=== PATIENT | male | born 1985 | race Two or more races ===

== ENCOUNTER 2020-07-01 04:08 | Inpatient (IN) | payer OTHER ==
[2020-06-30 07:17] VITALS: BMI 28.6
[~2020-07-01 04:08] MED LIST: VANCOMYCIN 1,000 MG VIAL (RESTRICTED TO ID ONLY) IVPB ONE
[2020-07-01] MEDS ORDERED: ceFAZolin SODIUM 1 GM VIAL IVPB ONE (08:37)
[2020-07-01] MEDS ORDERED: VANCOMYCIN 1,000 MG VIAL (RESTRICTED TO ID ONLY) IVPB ONE (08:47)
[2020-07-01] MEDS ORDERED: THROMBIN (BOVINE) 5,000 UNIT VIAL TP ONE (08:56)
[2020-07-01] MEDS ORDERED: GELATIN, ABSORBABLE 100 EACH SPONGE TP ONE (08:56)
[2020-07-01] MEDS ORDERED: TRANEXAMIC ACID 1000 MG/10 ML VIAL IVPB ONE ×2 (08:58→10:00)
[2020-07-01] MEDS ORDERED: BACITRACIN 50,000 UNITS VIAL TP ONE (09:00)
[2020-07-01] MEDS ORDERED: GENTAMICIN SO4 80 MG/2 ML VIAL IVPB ONE (09:00)
[2020-07-01] MEDS ORDERED: HYDROGEN PEROXIDE 473 ML PO ONE (09:00)
[2020-07-01] MEDS ORDERED: ONDANSETRON 4 MG/2 ML VIAL IVPUSH PRN ×2 (10:51→11:06)
[2020-07-01] MEDS ORDERED: LACTATED RINGERS SOLUTION 1,000 ML IV SCH (11:00)
[2020-07-01] MEDS ORDERED: LIDOCAINE HCL/PF 1% SDV 5ML VIAL ONE (11:06)
[2020-07-01] MEDS ORDERED: THROMBIN (BOVINE) 20,000 UNIT VIAL TP ONE (11:06)
[2020-07-01] MEDS ORDERED: GENTAMICIN SO4 80 MG/2 ML VIAL ONE (11:06)
[2020-07-01] MEDS ORDERED: ACETAMINOPHEN 1000 MG/100 ML VIAL (NON FORMULARY) IVPB ONE (11:13)
[2020-07-01] MEDS ORDERED: ACETAMINOPHEN 1000 MG/100 ML VIAL (NON FORMULARY) IVPB PRN (14:33)
[2020-07-01] MEDS ORDERED: oxyCODONE HCL 5 MG TABLET PO PRN (14:36)
[2020-07-01] MEDS: LACTATED RINGERS SOLUTION 1,000 ML IV SCH ×2 (15:00→20:04)
[2020-07-01] MEDS: CEFAZOLIN 2 GM/D5W 2 GM/50 ML ML IVPB SCH ×2 (15:00→20:19)
[2020-07-01] MEDS: oxyCODONE HCL 5 MG TABLET PO PRN (20:38)
[2020-07-01] MEDS ORDERED: GABAPENTIN 400 MG CAPSULE PO SCH (22:00)
[2020-07-02] MEDS: oxyCODONE HCL 5 MG TABLET PO PRN ×4 (01:24→16:46)
[2020-07-02] MEDS: CEFAZOLIN 2 GM/D5W 2 GM/50 ML ML IVPB SCH ×2 (02:00→11:24)
[2020-07-02] MEDS: LACTATED RINGERS SOLUTION 1,000 ML IV SCH ×2 (06:28→11:23)
[2020-07-02 09:24] LABS: HEMATOCRIT 39.6 % (35.4-49); HEMOGLOBIN 13.5 GM/dL (11.7-16.9); MCHC 34.1 g/dl (32.0-35.9); MEAN CELL VOLUME 90.8 fl (80-96); MEAN PLT VOLUME 7.8 fl (7.5-11.1); PLATELET COUNT 232 K/MM3 (134-434); RBC 4.36 M/mm3 (4.00-5.60); RDW 13.5 % (11.9-15.9); WHITE BLOOD COUNT 11.5 K/mm3 (4.0-10.0)
[2020-07-02 10:14] LABS: ALBUMIN 3.2 g/dl (3.4-5.0); BLOOD UREA NITROGEN 11.9 mg/dL (7-18); CALCIUM 9.2 mg/dL (8.5-10.1)
[2020-07-02 10:18] LABS: CREATININE 0.9 mg/dL (0.55-1.3)
[2020-07-02 10:19] LABS: BILIRUBIN,TOTAL 0.8 mg/dL (0.2-1)
[2020-07-02 15:46] VITALS: BP 141/78; PULSE 91; TEMP 97.5
== END 2020-07-02 18:53 | disposition home health service (06) | DRG 321 ==
LOC: J2C 04:08 → J8W 14:05
PROVIDERS: ADMIT Family Medicine; ATTEND Family Medicine
PROC: 0RG1070 Fusion of Cervical Vertebral Joint with Autologous Tissue Substitute, Anterior Approach, Anterior Column, Open Approach (ICD-10-PCS; 2020-07-01)
PROC: 00NW0ZZ Release Cervical Spinal Cord, Open Approach (ICD-10-PCS; 2020-07-01)
PROC: 0RB30ZZ Excision of Cervical Vertebral Disc, Open Approach (ICD-10-PCS; 2020-07-01)
PROC: 0PB30ZZ Excision of Cervical Vertebra, Open Approach (ICD-10-PCS; 2020-07-01)
PROC: B01BZZZ Fluoroscopy of Spinal Cord (ICD-10-PCS; 2020-07-01)
PROC: 4A1004G Monitoring of Central Nervous Electrical Activity, Intraoperative, Open Approach (ICD-10-PCS; 2020-07-01)
PROC: 0PS304Z Reposition Cervical Vertebra with Internal Fixation Device, Open Approach (ICD-10-PCS; 2020-07-01)
PROC: 0RG10A0 Fusion of Cervical Vertebral Joint with Interbody Fusion Device, Anterior Approach, Anterior Column, Open Approach (ICD-10-PCS; principal; 2020-07-01 08:00)
DX: M47.892 Other spondylosis, cervical region (principal); M40.202 Unspecified kyphosis, cervical region
CPT/HCPCS: 36415; 72125-TC; 76000-TC-FY; 80053; 85027; 86850; 86900; 86901; 94010; 94760; 97116-GP; 97161-GP; J0131

== ENCOUNTER 2021-01-12 14:57 | Emergency (ER) | payer OTHER ==
[2021-01-12 15:30] VITALS: BP 119/56; PULSE 81; TEMP 98.1; BMI 29.5
[2021-01-12] MEDS ORDERED: KETOROLAC TROMETHAMINE 60 MG/2 ML VIAL IM ONE (16:46)
[2021-01-12] MEDS ORDERED: KETOROLAC TROMETHAMINE 60 MG/2 ML VIAL ONE (16:48)
== END 2021-01-12 16:49 | disposition home or self-care (01) ==
LOC: JER 14:57
PROC: 3E0233Z Introduction of Anti-inflammatory into Muscle, Percutaneous Approach (ICD-10-PCS; principal; 2021-01-12)
DX: J45.901 Unspecified asthma with (acute) exacerbation (principal); M54.50 Low back pain, unspecified
CPT/HCPCS: 99283-25

== ENCOUNTER 2021-04-12 04:15 | Inpatient (IN) | payer OTHER ==
[2021-04-07 10:04] VITALS: BMI 28.8
[2021-04-12] MEDS ORDERED: LIDOCAINE 1%/EPI 1:100000 (20 ML MULTI DOSE VIAL) IJ ONE ×2 (07:44→08:50)
[2021-04-12] MEDS ORDERED: VANCOMYCIN 1 GM in D5W (PRE-DOCKED) 1,000 MG/250 ML IVPB ONE ×3 (07:45→12:15)
[2021-04-12] MEDS ORDERED: ceFAZolin 2 GRAM PREMIX BAG IVPB ONE ×3 (07:45→17:35)
[2021-04-12] MEDS ORDERED: THROMBIN (BOVINE) 5,000 UNIT VIAL TP ONE ×2 (07:46→09:10)
[2021-04-12] MEDS ORDERED: TRANEXAMIC ACID 1000 MG/10 ML VIAL IVPB ONE ×2 (07:46→08:15)
[2021-04-12] MEDS ORDERED: HYDROGEN PEROXIDE 473 ML PO ONE ×2 (07:47→09:33)
[2021-04-12] MEDS ORDERED: GENTAMICIN SO4 80 MG/2 ML VIAL IVPB ONE ×2 (07:47→09:24)
[2021-04-12] MEDS ORDERED: BUPIVACAINE HCL/PF 0.5% (5MG/ML) 10 ML VIAL IJ ONE ×2 (07:48→12:20)
[2021-04-12] MEDS ORDERED: BUPIVACAINE LIPOSOME/PF (EXPAREL) 266 MG/20 ML VIAL NR ONE ×2 (07:48→12:20)
[2021-04-12] MEDS ORDERED: ONDANSETRON 4 MG/2 ML VIAL IVPUSH PRN (13:08)
[2021-04-12] MEDS ORDERED: diazePAM CARPU-JECT 10 MG/2 ML DISP.SYRIN IVPUSH PRN (13:08)
[2021-04-12] MEDS ORDERED: oxyCODONE HCL 5 MG TABLET PO PRN (13:08)
[2021-04-12] MEDS ORDERED: LABETALOL HCL 5 MG/1 ML (100MG/20 ML VIAL) IVPUSH ONE (13:18)
[2021-04-12] MEDS ORDERED: TRIAMCINOLONE ACET 40MG/1ML VIAL ONE (13:25)
[2021-04-12] MEDS ORDERED: ceFAZolin SODIUM 1 GM VIAL ONE (17:18)
[2021-04-12] MEDS: LACTATED RINGERS SOLUTION 1,000 ML IV SCH ×2 (17:35→22:51)
[2021-04-12] MEDS: CEFAZOLIN 2 GM in SODIUM CHLORIDE 100 ML IVPB SCH (18:07)
[2021-04-12] MEDS ORDERED: FLU VACC QS2021-22(6MOS UP)/PF 60 MCG/0.5 ML SYRINGE IM ONE (20:00)
[2021-04-13] MEDS: CEFAZOLIN 2 GM in SODIUM CHLORIDE 100 ML IVPB SCH ×2 (00:30→06:22)
[2021-04-13] MEDS: HYDROmorphone HCl 2 MG/ML VIAL SQ PRN ×3 (01:29→18:06)
[2021-04-13] MEDS: ACETAMINOPHEN 1000 MG/100 ML BAG IVPB PRN ×2 (06:27→14:37)
[2021-04-13 08:14] LABS: HEMOGLOBIN 12.3 GM/dL (11.7-16.9); MCH 29.5 pg (25.7-33.7); MCHC 32.3 g/dl (32.0-35.9); MEAN CELL VOLUME 91.3 fl (80-96); PLATELET COUNT 254 10^3/uL (134-434); RBC 4.16 M/mm3 (4.00-5.60); WHITE BLOOD COUNT 11.5 K/mm3 (4.0-10.0)
[2021-04-13 08:53] LABS: CALCIUM 8.3 mg/dL (8.5-10.1)
[2021-04-13 08:54] LABS: BLOOD UREA NITROGEN 15.5 mg/dL (7-18)
[2021-04-13 08:57] LABS: CREATININE 0.9 mg/dL (0.55-1.3)
[2021-04-13] MEDS: oxyCODONE HCL 5 MG TABLET PO PRN (22:25)
[2021-04-14] MEDS: ACETAMINOPHEN 1000 MG/100 ML BAG IVPB PRN (00:44)
[2021-04-14] MEDS: HYDROmorphone HCl 2 MG/ML VIAL SQ PRN ×3 (05:35→18:50)
[2021-04-14 07:54] LABS: BASO % 0.3 % (0-2.0); EOS % 0.1 % (0-4.5); HEMATOCRIT 37.9 % (35.4-49); HEMOGLOBIN 12.3 GM/dL (11.7-16.9); LYMPH % 12.3 % (8-40); MCH 29.4 pg (25.7-33.7); MCHC 32.5 g/dl (32.0-35.9); MEAN CELL VOLUME 90.3 fl (80-96); MEAN PLT VOLUME 7.6 fl (7.5-11.1); MONO % 10.6 % (3.8-10.2); NEUT % 76.7 % (42.8-82.8); PLATELET COUNT 230 10^3/uL (134-434); RBC 4.19 M/mm3 (4.00-5.60); WHITE BLOOD COUNT 11.4 K/mm3 (4.0-10.0)
[2021-04-14 08:14] LABS: CALCIUM 8.6 mg/dL (8.5-10.1)
[2021-04-14 08:15] LABS: BLOOD UREA NITROGEN 9.9 mg/dL (7-18)
[2021-04-14 08:18] LABS: CREATININE 0.8 mg/dL (0.55-1.3); PHOSPHOROUS 2.2 mg/dL (2.5-4.9)
[2021-04-14 08:19] LABS: BILIRUBIN,TOTAL 1.4 mg/dL (0.2-1); TOT PROT 5.7 g/dl (6.4-8.2)
[2021-04-14] MEDS: LACTATED RINGERS SOLUTION 1,000 ML IV SCH (09:05)
[2021-04-14] MEDS ORDERED: HYDROmorphone HCl 2 MG/ML VIAL IVPB ONE (09:15)
[2021-04-14] MEDS: POLYETHYLENE GLYCOL (HEALTHYLAX) 3350 17 GM PACKET PO SCH (12:16)
[2021-04-14] MEDS: DOCUSATE SODIUM 100 MG CAPSULE (FP) PO SCH ×2 (12:16→21:41)
[2021-04-14] MEDS: oxyCODONE HCL 5 MG TABLET PO PRN (21:41)
[2021-04-14] MEDS: ACETAMINOPHEN 325 MG TABLET (FP) PO PRN (22:37)
[2021-04-15] MEDS: HYDROmorphone HCl 2 MG/ML VIAL SQ PRN (01:39)
[2021-04-15] MEDS ORDERED: ONDANSETRON 4 MG/2 ML VIAL IVPUSH PRN (07:24)
[2021-04-15] MEDS ORDERED: diazePAM CARPU-JECT 10 MG/2 ML DISP.SYRIN IVPUSH PRN (07:24)
[2021-04-15] MEDS ORDERED: HYDROmorphone HCl 2 MG/ML VIAL SQ PRN (07:24)
[2021-04-15] MEDS ORDERED: oxyCODONE HCL 5 MG TABLET PO PRN (07:24)
[2021-04-15] MEDS: DOCUSATE SODIUM 100 MG CAPSULE (FP) PO SCH ×2 (09:38→21:37)
[2021-04-15] MEDS: oxyCODONE HCL 5 MG TABLET PO PRN ×3 (09:38→19:02)
[2021-04-15] MEDS: POLYETHYLENE GLYCOL (HEALTHYLAX) 3350 17 GM PACKET PO SCH (09:39)
[2021-04-15 13:11] LABS: HEMATOCRIT 41.6 % (35.4-49); HEMOGLOBIN 13.7 GM/dL (11.7-16.9); MCH 29.8 pg (25.7-33.7); MEAN CELL VOLUME 90.3 fl (80-96); MEAN PLT VOLUME 8.1 fl (7.5-11.1); PLATELET COUNT 264 10^3/uL (134-434); RBC 4.61 M/mm3 (4.00-5.60); RDW 12.9 % (11.9-15.9); WHITE BLOOD COUNT 14.2 K/mm3 (4.0-10.0)
[2021-04-15 13:40] LABS: CALCIUM 9.1 mg/dL (8.5-10.1)
[2021-04-15 13:41] LABS: BLOOD UREA NITROGEN 10.4 mg/dL (7-18)
[2021-04-15 13:44] LABS: CREATININE 0.9 mg/dL (0.55-1.3)
[2021-04-15] MEDS ORDERED: DEXTROSE 5%-WATER - 50 ML IVPB ONE (13:45)
[2021-04-15] MEDS ORDERED: cefTRIAXone SODIUM 1 GM VIAL ONE (13:45)
[2021-04-15] MEDS: ACETAMINOPHEN 325 MG TABLET (FP) PO PRN ×2 (14:14→21:34)
[2021-04-15] MEDS: CEFTRIAXONE 1 GM in DEXTROSE 5%-WATER - 50 ML IVPB SCH (14:15)
[2021-04-15] MEDS ORDERED: VANCOMYCIN 1 GM in D5W (PRE-DOCKED) 1,000 MG/250 ML IVPB ONE (17:21)
[2021-04-16] MEDS: oxyCODONE HCL 5 MG TABLET PO PRN ×4 (06:58→23:55)
[2021-04-16] MEDS: ACETAMINOPHEN 325 MG TABLET (FP) PO PRN ×4 (06:59→23:56)
[2021-04-16] MEDS ORDERED: DEXTROSE 5%-WATER - 50 ML IVPB ONE (09:19)
[2021-04-16] MEDS ORDERED: cefTRIAXone SODIUM 1 GM VIAL ONE (09:19)
[2021-04-16] MEDS: CEFTRIAXONE 1 GM in DEXTROSE 5%-WATER - 50 ML IVPB SCH (11:03)
[2021-04-16] MEDS: POLYETHYLENE GLYCOL (HEALTHYLAX) 3350 17 GM PACKET PO SCH (11:03)
[2021-04-16] MEDS: DOCUSATE SODIUM 100 MG CAPSULE (FP) PO SCH ×2 (11:04→20:59)
[2021-04-16] MEDS: VANCOMYCIN/WATER BAGS 1,250 MG/250 ML BAG IVPB SCH (14:58)
[2021-04-16] MEDS: LACTATED RINGERS SOLUTION 1,000 ML IV SCH (20:24)
[2021-04-17] MEDS ORDERED: MELATONIN 5 MG TABLETS PO PRN (00:04)
[2021-04-17] MEDS: VANCOMYCIN/WATER BAGS 1,250 MG/250 ML BAG IVPB SCH ×2 (01:40→14:06)
[2021-04-17 02:24] LABS: URINE APPEARANCE CLEAR; URINE BILIRUBIN NEGATIVE (NEGATIVE); URINE COLOR YELLOW; URINE GLUCOSE (UA) NEGATIVE (NEGATIVE); URINE KETONE TRACE (NEGATIVE); URINE LEUK ESTERASE NEGATIVE (NEGATIVE); URINE NITRITE NEGATIVE (NEGATIVE); URINE PROTEIN TRACE (NEGATIVE)
[2021-04-17] MEDS: oxyCODONE HCL 5 MG TABLET PO PRN ×3 (08:58→22:22)
[2021-04-17] MEDS: ACETAMINOPHEN 325 MG TABLET (FP) PO PRN ×3 (08:59→22:24)
[2021-04-17] MEDS ORDERED: cefTRIAXone SODIUM 1 GM VIAL ONE (10:39)
[2021-04-17] MEDS ORDERED: DEXTROSE 5%-WATER - 50 ML IVPB ONE (10:40)
[2021-04-17] MEDS: POLYETHYLENE GLYCOL (HEALTHYLAX) 3350 17 GM PACKET PO SCH ×3 (11:00→22:22)
[2021-04-17] MEDS: CEFTRIAXONE 1 GM in DEXTROSE 5%-WATER - 50 ML IVPB SCH (11:00)
[2021-04-17] MEDS: DOCUSATE SODIUM 100 MG CAPSULE (FP) PO SCH ×2 (11:01→22:22)
[2021-04-17 12:01] LABS: BASO % 0.3 % (0-2.0); EOS % 0.1 % (0-4.5); HEMATOCRIT 39.6 % (35.4-49); HEMOGLOBIN 13.2 GM/dL (11.7-16.9); LYMPH % 9.6 % (8-40); MCHC 33.2 g/dl (32.0-35.9); MEAN CELL VOLUME 90.2 fl (80-96); MONO % 7.8 % (3.8-10.2); NEUT % 82.2 % (42.8-82.8); PLATELET COUNT 323 10^3/uL (134-434); RBC 4.39 M/mm3 (4.00-5.60); RDW 13.4 % (11.9-15.9); WHITE BLOOD COUNT 8.8 K/mm3 (4.0-10.0)
[2021-04-17 12:20] LABS: CALCIUM 8.7 mg/dL (8.5-10.1)
[2021-04-17 12:21] LABS: ALBUMIN 2.9 g/dl (3.4-5.0)
[2021-04-17 12:24] LABS: CREATININE 0.8 mg/dL (0.55-1.3)
[2021-04-17 12:25] LABS: TOT PROT 6.6 g/dl (6.4-8.2)
[2021-04-17] MEDS: ENOXAPARIN NA (PORCINE) 40 MG/0.4 ML DISP.SYRIN SQ SCH (16:52)
[2021-04-18] MEDS: VANCOMYCIN/WATER BAGS 1,250 MG/250 ML BAG IVPB SCH ×2 (01:30→14:55)
[2021-04-18] MEDS: ACETAMINOPHEN 325 MG TABLET (FP) PO PRN ×3 (06:08→22:25)
[2021-04-18] MEDS: POLYETHYLENE GLYCOL (HEALTHYLAX) 3350 17 GM PACKET PO SCH ×3 (06:08→21:01)
[2021-04-18] MEDS: oxyCODONE HCL 5 MG TABLET PO PRN ×3 (06:09→21:00)
[2021-04-18] MEDS ORDERED: cefTRIAXone SODIUM 1 GM VIAL ONE (09:53)
[2021-04-18] MEDS ORDERED: DEXTROSE 5%-WATER - 50 ML IVPB ONE ×3 (09:54→21:58)
[2021-04-18] MEDS: CEFTRIAXONE 1 GM in DEXTROSE 5%-WATER - 50 ML IVPB SCH (10:01)
[2021-04-18] MEDS: DOCUSATE SODIUM 100 MG CAPSULE (FP) PO SCH ×2 (10:01→21:00)
[2021-04-18] MEDS: ENOXAPARIN NA (PORCINE) 40 MG/0.4 ML DISP.SYRIN SQ SCH (10:01)
[2021-04-18 12:29] LABS: BASO % 0.4 % (0-2.0); EOS % 0.4 % (0-4.5); HEMATOCRIT 37.7 % (35.4-49); HEMOGLOBIN 12.7 GM/dL (11.7-16.9); LYMPH % 18.8 % (8-40); MCH 30.1 pg (25.7-33.7); MCHC 33.6 g/dl (32.0-35.9); MEAN CELL VOLUME 89.5 fl (80-96); MEAN PLT VOLUME 7.6 fl (7.5-11.1); MONO % 8.8 % (3.8-10.2); NEUT % 71.6 % (42.8-82.8); PLATELET COUNT 332 10^3/uL (134-434); RBC 4.21 M/mm3 (4.00-5.60); RDW 13.2 % (11.9-15.9); WHITE BLOOD COUNT 7.7 K/mm3 (4.0-10.0)
[2021-04-18 13:27] LABS: CALCIUM 8.9 mg/dL (8.5-10.1)
[2021-04-18 13:28] LABS: ALBUMIN 2.8 g/dl (3.4-5.0); BLOOD UREA NITROGEN 15.2 mg/dL (7-18)
[2021-04-18 13:31] LABS: CREATININE 0.9 mg/dL (0.55-1.3)
[2021-04-18 13:33] LABS: BILIRUBIN,TOTAL 0.6 mg/dL (0.2-1); TOT PROT 6.5 g/dl (6.4-8.2)
[2021-04-18] MEDS ORDERED: PIPERACILLIN/TAZOBACTAM 3.375 GM VIAL IVPB ONE ×2 (16:19→21:57)
[2021-04-18] MEDS: PIPERACILLIN/TAZOB 3.375 GM 3.375 GM in DEXTROSE 5%-WATER - 50 ML IVPB SCH ×2 (16:39→22:37)
[2021-04-19] MEDS: POLYETHYLENE GLYCOL (HEALTHYLAX) 3350 17 GM PACKET PO SCH ×3 (05:22→21:11)
[2021-04-19] MEDS ORDERED: PIPERACILLIN/TAZOBACTAM 3.375 GM VIAL IVPB ONE ×3 (06:11→21:53)
[2021-04-19] MEDS ORDERED: DEXTROSE 5%-WATER - 50 ML IVPB ONE ×3 (06:12→21:53)
[2021-04-19] MEDS: PIPERACILLIN/TAZOB 3.375 GM 3.375 GM in DEXTROSE 5%-WATER - 50 ML IVPB SCH ×3 (06:33→22:51)
[2021-04-19] MEDS: DOCUSATE SODIUM 100 MG CAPSULE (FP) PO SCH ×2 (10:27→21:11)
[2021-04-19] MEDS: ENOXAPARIN NA (PORCINE) 40 MG/0.4 ML DISP.SYRIN SQ SCH (10:27)
[2021-04-19] MEDS: oxyCODONE HCL 5 MG TABLET PO PRN ×2 (12:06→20:33)
[2021-04-19] MEDS: ACETAMINOPHEN 325 MG TABLET (FP) PO PRN ×2 (12:09→20:34)
[2021-04-20] MEDS ORDERED: DEXTROSE 5%-WATER - 50 ML IVPB ONE (05:36)
[2021-04-20] MEDS ORDERED: PIPERACILLIN/TAZOBACTAM 3.375 GM VIAL IVPB ONE (05:36)
[2021-04-20] MEDS: POLYETHYLENE GLYCOL (HEALTHYLAX) 3350 17 GM PACKET PO SCH ×2 (05:51→14:22)
[2021-04-20] MEDS: PIPERACILLIN/TAZOB 3.375 GM 3.375 GM in DEXTROSE 5%-WATER - 50 ML IVPB SCH (06:29)
[2021-04-20] MEDS: oxyCODONE HCL 5 MG TABLET PO PRN (08:12)
[2021-04-20] MEDS: DOCUSATE SODIUM 100 MG CAPSULE (FP) PO SCH ×2 (08:13→09:29)
[2021-04-20] MEDS: ENOXAPARIN NA (PORCINE) 40 MG/0.4 ML DISP.SYRIN SQ SCH ×2 (08:13→09:29)
[2021-04-20 15:08] VITALS: BP 132/68; PULSE 109; TEMP 98
== END 2021-04-20 15:09 | disposition home or self-care (01) | DRG 304 ==
LOC: J2C 04:15 → J4W 17:28 → J2C 17:28 → J4W 18:15 → J7W 04-13 20:27 → J6S 04-17 22:47
PROVIDERS: ADMIT Neurological Surgery
PROC: 01NB0ZZ Release Lumbar Nerve, Open Approach (ICD-10-PCS; 2021-04-12)
PROC: 0SB40ZZ Excision of Lumbosacral Disc, Open Approach (ICD-10-PCS; 2021-04-12)
PROC: 4A1004G Monitoring of Central Nervous Electrical Activity, Intraoperative, Open Approach (ICD-10-PCS; 2021-04-12)
PROC: 0SG30AJ Fusion of Lumbosacral Joint with Interbody Fusion Device, Posterior Approach, Anterior Column, Open Approach (ICD-10-PCS; principal; 2021-04-12 08:00)
DX: M51.27 Other intervertebral disc displacement, lumbosacral region (principal); M40.292 Other kyphosis, cervical region; U07.1 COVID-19; D72.829 Elevated white blood cell count, unspecified; R50.9 Fever, unspecified; R78.81 Bacteremia; E78.5 Hyperlipidemia, unspecified; I10 Essential (primary) hypertension; E66.9 Obesity, unspecified; Z68.28 Body mass index [BMI] 28.0-28.9, adult; R74.01 Elevation of levels of liver transaminase levels; M47.897 Other spondylosis, lumbosacral region; M48.07 Spinal stenosis, lumbosacral region; M54.17 Radiculopathy, lumbosacral region
CPT/HCPCS: 36415; 71045-TC-FY; 72131-TC; 80048; 80053; 81003; 83735; 84100; 85025; 85027; 86140; 86850; 86900; 86901; 87040; 87086; 87186; 94760; 97116-GP; 97161-GP; C9803; J0131; U0003; U0005

== ENCOUNTER 2022-02-21 11:00 | Inpatient (IN) | payer OTHER ==
[2022-04-06 16:51] VITALS: BMI 29.9
[2022-04-11] MEDS ORDERED: VANCOMYCIN 1,000 MG VIAL (RESTRICTED TO ID ONLY) ONE ×2 (07:06→07:56)
[2022-04-11] MEDS ORDERED: GENTAMICIN SO4 80 MG/2 ML VIAL ONE (07:07)
[2022-04-11] MEDS ORDERED: BUPIVACAINE LIPOSOME/PF (EXPAREL) 266 MG/20 ML VIAL ONE (07:07)
[2022-04-11] MEDS ORDERED: BUPIVACAINE HCL/PF 0.5% (5MG/ML) 10 ML VIAL ONE (07:07)
[2022-04-11] MEDS ORDERED: THROMBIN (BOVINE) 5,000 UNIT VIAL TP ONE ×2 (07:07→09:10)
[2022-04-11] MEDS ORDERED: ROCURONIUM BROMIDE 50 MG/5 ML SYRINGE ONE (07:51)
[2022-04-11] MEDS ORDERED: MIDAZOLAM HCL 2 MG/2 ML SINGLE DOSE VIAL ONE ×2 (07:51→09:51)
[2022-04-11] MEDS ORDERED: PROPOFOL 20 ML ONE ×2 (07:51→11:49)
[2022-04-11] MEDS ORDERED: GLYCOPYRROLATE 0.2 MG/1 ML VIAL ONE ×2 (07:52→11:37)
[2022-04-11] MEDS ORDERED: SODIUM CHLORIDE 0.9% P/F 10 ML VIAL IJ ONE (07:56)
[2022-04-11] MEDS ORDERED: ceFAZolin SODIUM 1 GM VIAL ONE (07:56)
[2022-04-11] MEDS ORDERED: LIDOCAINE HCL/PF 2% SDV 5ML VIAL ONE (08:24)
[2022-04-11] MEDS ORDERED: ceFAZolin SODIUM 1 GM VIAL IVPB ONE (08:25)
[2022-04-11] MEDS ORDERED: VANCOMYCIN 1 GM in NS (PRE-DOCKED) 1,000 MG/250 ML IVPB ONE ×3 (08:30→11:32)
[2022-04-11] MEDS ORDERED: PHENYLEPHRINE HCL 10 MG/1 ML SINGLE DOSE VIAL ONE (08:42)
[2022-04-11] MEDS ORDERED: HYDROGEN PEROXIDE 473 ML PO ONE ×2 (09:10→10:19)
[2022-04-11] MEDS ORDERED: GENTAMICIN 80MG PREMIX BAG IVPB ONE (09:10)
[2022-04-11] MEDS ORDERED: BUPIVACAINE LIPOSOME/PF (EXPAREL) 266 MG/20 ML VIAL NR ONE (10:13)
[2022-04-11] MEDS ORDERED: NEOSTIGMINE METHYLSULFATE 0.5 MG/ML - 10 ML MDV ONE (11:37)
[2022-04-11] MEDS ORDERED: morphine SULFATE/PF 1 MG/2 ML (2cc Syringe - QUVA) EP ONE (12:56)
[2022-04-11] MEDS ORDERED: ONDANSETRON 4 MG/2 ML VIAL IVPUSH PRN ×2 (12:56→13:04)
[2022-04-11] MEDS ORDERED: PROMETHAZINE HCL 25 MG/1 ML VIAL IVPUSH PRN (12:57)
[2022-04-11] MEDS ORDERED: LACTATED RINGERS SOLUTION 1,000 ML IV SCH (13:00)
[2022-04-11] MEDS ORDERED: diphenhydrAMINE HCL 25 MG CAPSULE (FP) PO PRN (13:04)
[2022-04-11] MEDS: ACETAMINOPHEN 1000 MG/100 ML BAG IVPB PRN (15:40)
[2022-04-11] MEDS: DOCUSATE SODIUM 100 MG CAPSULE (FP) PO SCH ×2 (15:45→21:33)
[2022-04-11] MEDS: LACTATED RINGERS SOLUTION 1,000 ML/1,000 ML INFUS.BAG IV SCH (16:20)
[2022-04-11] MEDS: CEFAZOLIN 1 GM in DEXTROSE 5%-WATER - 50 ML IVPB SCH (17:12)
[2022-04-11] MEDS ORDERED: ACETAMINOPHEN 1000 MG/100 ML BAG IVPB PRN (19:30)
[2022-04-12] MEDS: CEFAZOLIN 1 GM in DEXTROSE 5%-WATER - 50 ML IVPB SCH (00:06)
[2022-04-12] MEDS: LACTATED RINGERS SOLUTION 1,000 ML/1,000 ML INFUS.BAG IV SCH ×2 (00:56→13:12)
[2022-04-12] MEDS: DOCUSATE SODIUM 100 MG CAPSULE (FP) PO SCH ×3 (06:30→21:40)
[2022-04-12 08:53] LABS: HEMATOCRIT 40.7 % (35.4-49); HEMOGLOBIN 13.1 GM/dL (11.7-16.9); MCH 29.6 pg (25.7-33.7); MCHC 32.3 g/dl (32.0-35.9); MEAN CELL VOLUME 91.7 fl (80-96); MEAN PLT VOLUME 7.8 fl (7.5-11.1); PLATELET COUNT 230 10^3/uL (134-434); RBC 4.44 M/mm3 (4.00-5.60); RDW 13.5 % (11.9-15.9); WHITE BLOOD COUNT 11.3 K/mm3 (4.0-10.0)
[2022-04-12 09:16] LABS: BLOOD UREA NITROGEN 19.6 mg/dL (7-18); CALCIUM 8.2 mg/dL (8.5-10.1)
[2022-04-12 09:19] LABS: CREATININE 1.2 mg/dL (0.55-1.3)
[2022-04-12] MEDS: ACETAMINOPHEN 1000 MG/100 ML BAG IVPB PRN (20:47)
[2022-04-12] MEDS: HEPARIN NA (PORCINE) 5,000 UNITS/ML 1ML VIAL SQ SCH (21:39)
[2022-04-13] MEDS: DOCUSATE SODIUM 100 MG CAPSULE (FP) PO SCH ×3 (05:48→21:59)
[2022-04-13] MEDS: HEPARIN NA (PORCINE) 5,000 UNITS/ML 1ML VIAL SQ SCH ×3 (05:48→22:01)
[2022-04-13] MEDS: ACETAMINOPHEN 1000 MG/100 ML BAG IVPB PRN ×2 (06:30→16:21)
[2022-04-13] MEDS ORDERED: morphine CARPU-JECT 4 MG/1 ML DISP.SYRIN IVPUSH PRN (08:33)
[2022-04-13] MEDS ORDERED: oxyCODONE HCL 5 MG TABLET PO PRN (08:33)
[2022-04-13] MEDS ORDERED: SIMETHICONE 80 MG TAB.CHEW (FP) PO PRN (08:34)
[2022-04-13] MEDS: LACTATED RINGERS SOLUTION 1,000 ML/1,000 ML INFUS.BAG IV SCH (09:00)
[2022-04-13] MEDS: TAMSULOSIN HCL 0.4 MG CAP PO SCH (10:18)
[2022-04-13] MEDS: POLYETHYLENE GLYCOL (HEALTHYLAX) 3350 17 GM PACKET PO SCH (10:18)
[2022-04-13] MEDS: BACLOFEN 10 MG TABLET (FP) PO SCH ×2 (10:19→21:59)
[2022-04-13] MEDS: LIDOCAINE 5% TOPICAL PATCH TP SCH (10:19)
[2022-04-13] MEDS: oxyCODONE HCL 5 MG TABLET PO PRN (12:42)
[2022-04-13] MEDS ORDERED: morphine SULFATE 4 MG/ML VIAL IVPUSH PRN (21:34)
[2022-04-13] MEDS ORDERED: LIDOCAINE PATCH REMOVAL MC SCH (22:00)
[2022-04-13] MEDS ORDERED: diazePAM 5 MG TABLET PO SCH (22:00)
[2022-04-14] MEDS: oxyCODONE HCL 5 MG TABLET PO PRN ×2 (01:12→10:38)
[2022-04-14] MEDS: DOCUSATE SODIUM 100 MG CAPSULE (FP) PO SCH ×2 (05:33→14:00)
[2022-04-14] MEDS: HEPARIN NA (PORCINE) 5,000 UNITS/ML 1ML VIAL SQ SCH ×2 (05:34→14:00)
[2022-04-14] MEDS: TAMSULOSIN HCL 0.4 MG CAP PO SCH (08:33)
[2022-04-14] MEDS: LIDOCAINE 5% TOPICAL PATCH TP SCH (09:02)
[2022-04-14] MEDS: POLYETHYLENE GLYCOL (HEALTHYLAX) 3350 17 GM PACKET PO SCH (09:02)
[2022-04-14] MEDS: BACLOFEN 10 MG TABLET (FP) PO SCH (09:03)
[2022-04-14] MEDS: LACTATED RINGERS SOLUTION 1,000 ML/1,000 ML INFUS.BAG IV SCH (13:15)
[2022-04-14 15:38] VITALS: BP 134/76; PULSE 90; RESP 20; TEMP 97.8
== END 2022-04-14 18:34 | disposition home or self-care (01) | DRG 304 ==
LOC: J2C 04-11 04:24 → J4W 04-11 16:51
PROVIDERS: ADMIT Family Medicine; ATTEND Family Medicine
PROC: 0SG0071 Fusion of Lumbar Vertebral Joint with Autologous Tissue Substitute, Posterior Approach, Posterior Column, Open Approach (ICD-10-PCS; 2022-04-11)
PROC: 0SB20ZZ Excision of Lumbar Vertebral Disc, Open Approach (ICD-10-PCS; 2022-04-11)
PROC: 0SP00AZ Removal of Interbody Fusion Device from Lumbar Vertebral Joint, Open Approach (ICD-10-PCS; 2022-04-11)
PROC: 0SG3071 Fusion of Lumbosacral Joint with Autologous Tissue Substitute, Posterior Approach, Posterior Column, Open Approach (ICD-10-PCS; 2022-04-11)
PROC: 0SB40ZZ Excision of Lumbosacral Disc, Open Approach (ICD-10-PCS; 2022-04-11)
PROC: 0SP30AZ Removal of Interbody Fusion Device from Lumbosacral Joint, Open Approach (ICD-10-PCS; 2022-04-11)
PROC: 4A10X4G Monitoring of Central Nervous Electrical Activity, Intraoperative, External Approach (ICD-10-PCS; 2022-04-11)
PROC: 0SG00AJ Fusion of Lumbar Vertebral Joint with Interbody Fusion Device, Posterior Approach, Anterior Column, Open Approach (ICD-10-PCS; principal; 2022-04-11 08:00)
DX: M47.896 Other spondylosis, lumbar region (principal); M47.897 Other spondylosis, lumbosacral region; M96.0 Pseudarthrosis after fusion or arthrodesis; Y83.8 Other surgical procedures as the cause of abnormal reaction of the patient, or of later complication, without mention of misadventure at the time of the procedure; R33.8 Other retention of urine
CPT/HCPCS: 36415; 72131-TC; 76000-TC-FY; 80048; 83735; 85027; 94760; 97116-GP; 97162-GP; C1713; C1889; J0475; J1644